=== PATIENT | male | born 1985 | race Two or more races ===

== ENCOUNTER 2018-12-28 03:46 | Emergency (ER) | payer SELFPAY ==
[~2018-12-28] VITALS: Ht 182.9 cm; Wt 79.5 kg
[2018-12-28 04:29] VITALS: BP 126/72
== END 2018-12-28 04:34 | disposition home or self-care (01) ==
LOC: EMS 03:50
DX: S01.511A Laceration without foreign body of lip, initial encounter (principal); S80.211A Abrasion, right knee, initial encounter; S80.212A Abrasion, left knee, initial encounter; S00.512A Abrasion of oral cavity, initial encounter; Y04.2XXA Assault by strike against or bumped into by another person, initial encounter; Y93.89 Activity, other specified; Y92.89 Other specified places as the place of occurrence of the external cause; Y99.8 Other external cause status